=== PATIENT | male | born 1955 | race Caucasian/White ===

== ENCOUNTER 2017-01-11 15:30 | Inpatient (IN) | payer OTHER ==
[~2017-01-11] VITALS: Ht 175.3 cm; Wt 91.7 kg
[~2017-01-11 15:30] MED LIST: AMOX1TAB10 PO; CEPH-443 PO; CLOT30CR35 TOP; HYDR8TAB25 PO; LIDO5OI35 TP; METO100T13 PO; NYST60PO11 TOP; SULF1TAB31 PO; VENL150C PO
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
[2017-01-11] MEDS ORDERED: PIPER-TAZO 3.375 GM IV (PMX) 100 ML IVPB ONE (22:00)
[2017-01-11] MEDS ORDERED: VANCOMYCIN 1 GM (PMX) 250 ML IVPB SCH (22:00)
[2017-01-11] MEDS ORDERED: NACL 0.9% 3 ML SYG IV SCH (23:00)
[2017-01-11] MEDS ORDERED: ACETAMINOPHEN 325 MG TAB PO PRN ×2 (23:00)
[2017-01-11] MEDS ORDERED: ALBUTEROL/IPRATROPIUM (NEB) 3 ML AMP HHN PRN (23:00)
[2017-01-11] MEDS ORDERED: ONDANSETRON 4 MG INJ IV PRN ×2 (23:00)
[2017-01-11] MEDS ORDERED: hydrALAzine 20 MG INJ IV PRN (23:00)
[2017-01-11] MEDS ORDERED: NA PHOSPHATE/BIPHOS 133 ML ENEMA PR PRN (23:00)
[2017-01-11] MEDS ORDERED: NITROGLYCERIN (SL) 0.4 MG TAB SL PRN (23:00)
[2017-01-11] MEDS ORDERED: VANCOMYCIN IV PER PHARMACY XX SCH (23:00)
[2017-01-11] MEDS ORDERED: MAGNESIUM HYDROXIDE 30ML CUP PO PRN (23:00)
[2017-01-11] MEDS ORDERED: LORAZEPAM 2 MG INJ IV PRN (23:00)
[2017-01-11] MEDS ORDERED: DOCUSATE SODIUM 100 MG CAP PO PRN (23:00)
[2017-01-11 23:03] LABS: ADD SCAN DIFF NO
[2017-01-11 23:05] LABS: BASOPHILS % 0.3 % (0.0-2.0); EOSINOPHILS # 0.2 10^3/ul (0.0-0.5); EOSINOPHILS % 2.9 % (0.0-7.0); HEMATOCRIT 31.1 % (42.0-52.0); HEMOGLOBIN 9.9 g/dl (14.0-18.0); LYMPHOCYTES # 0.9 10^3/ul (0.8-2.9); LYMPHOCYTES % 11.3 % (15.0-51.0); MEAN CORPUSCULAR HEMOGLOBIN 26.8 pg (29.0-33.0); MEAN CORPUSCULAR HGB CONC 31.8 g/dl (32.0-37.0); MEAN CORPUSCULAR VOLUME 84.3 fl (82.0-101.0); MEAN PLATELET VOLUME 10.1 fl (7.4-10.4); MONOCYTES % 12.5 % (0.0-11.0); NEUTROPHIL # 5.5 10^3/ul (1.6-7.5); NEUTROPHILS % 72.5 % (39.0-77.0); PLATELET COUNT 250 10^3/UL (140-415); RED BLOOD COUNT 3.69 10^6/ul (4.70-6.10); RED CELL DISTRIBUTION WIDTH 17.1 % (11.5-14.5); WHITE BLOOD COUNT 7.6 10^3/ul (4.8-10.8)
[2017-01-11 23:14] LABS: ALBUMIN 3.8 g/dl (3.3-4.9)
[2017-01-11 23:15] LABS: POTASSIUM 4.1 mmol/L (3.5-5.1)
[2017-01-11 23:17] LABS: ALBUMIN/GLOBULIN RATIO 1.05; BILIRUBIN,INDIRECT 0.1 mg/dl (0-1.1); BILIRUBIN,TOTAL 0.1 mg/dl (0.2-1.3); CREATININE 0.68 mg/dl (0.61-1.24); TOTAL PROTEIN 7.4 g/dl (6.1-8.1)
[2017-01-11 23:18] LABS: CALCIUM 8.7 mg/dl (8.4-10.2)
[2017-01-12 00:26] VITALS: PULSE 72; TEMP 99.1
[2017-01-12] MEDS: morphine 2 MG INJ IV PRN ×3 (00:29→15:18)
[2017-01-12] MEDS ORDERED: HYDROmorphONE 1 MG/ML SYG IV STA (00:46)
[2017-01-12 01:29] VITALS: Ht 175.3 cm; Wt 91.7 kg
[2017-01-12] MEDS ORDERED: LOSA50TA6 PO (01:39)
[2017-01-12] MEDS ORDERED: METO200T4 PO (01:52)
[2017-01-12] MEDS: SOD CHLORIDE 0.9% 1,000 ML IV SCH ×3 (03:14→18:24)
[2017-01-12 03:19] VITALS: BP 145/71; RESP 16
[2017-01-12] MEDS: HYDROCODONE/APAP (5/325) TAB PO PRN (03:19)
[2017-01-12] MEDS: PIPER-TAZO 3.375 GM IV (PMX) 100 ML IVPB SCH ×2 (05:35→12:29)
[2017-01-12 05:42] LABS: INR 1.1; PROTIME 14.2 Sec (12.2-14.2); PT RATIO 1.1
[2017-01-12 05:43] LABS: PARTIAL THROMBOPLASTIN TIME 36.7 Sec (25.0-35.0)
[2017-01-12 05:55] LABS: CHOL/HDL RATIO 3.6 RATIO
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
[2017-01-12] MEDS ORDERED: PANTOPRAZOLE 40 MG INJ IV SCH (06:00)
[2017-01-12 06:21] LABS: THYROID STIMULATING HORMONE 5.36 MIU/L (0.465-4.680)
[2017-01-12 07:45] LABS: ADD SCAN DIFF NO
[2017-01-12 07:50] LABS: BASOPHILS % 0.3 % (0.0-2.0); EOSINOPHILS # 0.3 10^3/ul (0.0-0.5); EOSINOPHILS % 4.5 % (0.0-7.0); HEMATOCRIT 30.4 % (42.0-52.0); HEMOGLOBIN 9.5 g/dl (14.0-18.0); LYMPHOCYTES # 0.9 10^3/ul (0.8-2.9); LYMPHOCYTES % 12.3 % (15.0-51.0); MEAN CORPUSCULAR HEMOGLOBIN 26.5 pg (29.0-33.0); MEAN CORPUSCULAR HGB CONC 31.3 g/dl (32.0-37.0); MEAN CORPUSCULAR VOLUME 84.9 fl (82.0-101.0); MONOCYTE # 1.1 10^3/ul (0.3-0.9); MONOCYTES % 14.3 % (0.0-11.0); NEUTROPHILS % 68.2 % (39.0-77.0); PLATELET COUNT 257 10^3/UL (140-415); RED BLOOD COUNT 3.58 10^6/ul (4.70-6.10); RED CELL DISTRIBUTION WIDTH 17.2 % (11.5-14.5); WHITE BLOOD COUNT 7.4 10^3/ul (4.8-10.8)
[2017-01-12 08:02] VITALS: BP 118/67; RESP 20
[2017-01-12 08:31] LABS: POTASSIUM 4.2 mmol/L (3.5-5.1)
[2017-01-12 08:33] LABS: CREATININE 0.77 mg/dl (0.61-1.24)
[2017-01-12 08:34] LABS: CALCIUM 8.5 mg/dl (8.4-10.2); MAGNESIUM 2.1 mg/dl (1.7-2.5); PHOSPHORUS 3.8 mg/dl (2.5-4.9)
[2017-01-12] MEDS: VENLAFAXINE (XR) 75 MG CAP PO SCH (09:00)
[2017-01-12] MEDS: METOPROLOL (XL) 100 MG TAB PO SCH (09:02)
[2017-01-12] MEDS: HEPARIN 5,000 UNIT/0.5 ML SYG SC SCH ×2 (09:09→21:25)
[2017-01-12] MEDS: VANCOMYCIN 1.25 GM in SOD CHLORIDE 0.9% 250 ML IVPB SCH ×2 (09:34→21:18)
--- NOTE | 2017-01-12 15:38 | PN ---
DATE: 01/12/2017 SUBJECTIVE: The patient is alert, lying comfortably in bed; no fevers. Vital signs stable. WBC 7. 4, no shift, no bands. BUN 18, creatinine 0.77. ANTIMICROBIALS The patient is on: 1. Vancomycin. 2. Zosyn. PHYSICAL EXAMINATION GENERAL: A well-developed, fragile, elderly man who looks older than his age, who is in no distress . HEENT: Head atraumatic, normocephalic. Sclerae are anicteric. Buccal mucosa pink. NECK: Supple. CHEST: Rise symmetrical. Breath sounds clear. HEART: S1, S2. ABDOMEN: Soft, bowel tones present. EXTREMITIES: Left lower extremity erythema around the scabs on the upper thigh. ASSESSMENT 1. Left thigh cellulitis. 2. History of benign prostatic hypertrophy. 3. History of Lykcg-Qsrdnupns-Wkqew disease. 4. Hypertension. 5. Psychiatric problems. PLAN: The patient remains stable. We will continue him on vancomycin. Change the Zosyn to Levaqui n. Apply Silvadene cream to left upper thigh. Dictated By: LAN MENDOZA INVENTORY AUDITOR for RYAN JAIMES/DARWIN Conf#: [id number] DID#: [id number]
[2017-01-12] MEDS ORDERED: SILVER SULFADIAZINE 1% 400 GM CR TOP SCH (16:00)
[2017-01-12] MEDS: LEVOFLOXACIN 500 MG TAB PO SCH (16:05)
--- NOTE | 2017-01-12 17:02 | PN ---
Date/Time of Note Date/Time of Note DATE: 01/12/17 TIME: 17:00 Assessment/Plan VTE Prophylaxis VTE Prophylaxis Intervention: heparin Lines/Catheters IV Catheter Type (from Nrsg): Peripheral IV Assessment/Plan Assessment/Plan 1. Left thigh cellulitis. 2. History of benign prostatic hypertrophy. 3. History of Tmwni-Oiobyjqyv-Ewpyh disease. 4. Hypertension. 5. Psychiatric problems. Plan: IV abx zosyn and vancomycin ID following D/c zosyn and started on PO levaquin Heparin for DVT prophylaxis pt has psych issues, need SW consult Subjective 24 Hr Interval Summary Free Text/Dictation pt wants pain management but not using any pain meds so far Exam/Review of Systems Vital Signs Vitals Vital Signs Date Time Temp Pulse Resp B/P Pulse Ox O2 Delivery O2 Flow Rate FiO2 01/12/17 08:02 98.5 74 20 118/67 95 01/12/17 00:26 Room Air Intake and Output 01/11/17 01/11/17 01/12/17 15:00 23:00 07:00 Intake Total 440 ml Balance 440 ml Exam GENERAL: A well-developed, fragile, elderly man who looks older than his age, who is in no distress. HEENT: Head atraumatic, normocephalic. Sclerae are anicteric. Buccal mucosa pink. NECK: Supple. CHEST: Rise symmetrical. Breath sounds clear. HEART: S1, S2. ABDOMEN: Soft, bowel tones present. EXTREMITIES: Left lower extremity erythema around the scabs on the upper thigh. Results Result Diagram: 01/12/17 0455 01/12/17 0455 Results 24 hrs Laboratory Tests Test 01/11/17 23:00 01/12/17 04:55 Alanine Aminotransferase (ALT/SGPT) 49 Albumin 3.8 Albumin/Globulin Ratio 1.05 Alkaline Phosphatase 179 H Anion Gap 17 H 14 Aspartate Amino Transf (AST/SGOT) 32 Basophils # 0.0 0.0 Basophils % 0.3 0.3 Blood Urea Nitrogen 16 18 Calcium Level 8.7 8.5 Carbon Dioxide Level 25 28 Chloride Level 103 102 Creatinine 0.68 0.77 Direct Bilirubin 0.00 Eosinophils # 0.2 0.3 Eosinophils % 2.9 4.5 Globulin 3.60 H Glucose Level 110 85 Hematocrit 31.1 L 30.4 L Hemoglobin 9.9 L 9.5 L Indirect Bilirubin 0.1 Lymphocytes # 0.9 0.9 Lymphocytes % 11.3 L 12.3 L Mean Corpuscular Hemoglobin 26.8 L 26.5 L Mean Corpuscular Hemoglobin Concent 31.8 L 31.3 L Mean Corpuscular Volume 84.3 84.9 Mean Platelet Volume 10.1 11.0 H Monocytes # 1.0 H 1.1 H Monocytes % 12.5 H 14.3 H Neutrophils # 5.5 5.0 Neutrophils % 72.5 68.2 Nucleated Red Blood Cells # 0.0 0.0 Nucleated Red Blood Cells % 0.0 0.0 Platelet Count 250 257 Potassium Level 4.1 4.2 Red Blood Count 3.69 L 3.58 L Red Cell Distribution Width 17.1 H 17.2 H Sodium Level 141 140 Total Bilirubin 0.1 L Total Protein 7.4 White Blood Count 7.6 # 7.4 Activated Partial Thromboplast Time 36.7 H Cholesterol Level 181 Cholesterol/HDL Ratio 3.6 Free Thyroxine 1.21 HDL Cholesterol 49 Hemoglobin A1c 5.3 INR International Normalized Ratio 1.10 LDL Cholesterol, Calculated 96 Magnesium Level 2.1 Phosphorus Level 3.8 Prothrombin Time 14.2 Prothrombin Time Ratio 1.1 Thyroid Stimulating Hormone (TSH) 5.360 H Triglycerides Level 178 H Medications Medications Current Medications Ondansetron HCl (Zofran Inj) 4 mg Q6H PRN IV NAUSEA AND/OR VOMITING; Start at 23:00 Acetaminophen (Tylenol Tab) 650 mg Q6H PRN PO PAIN LEVEL 1-3 OR FEVER; Start at 23:00 Acetaminophen/ Hydrocodone Bitart ([place] (5/325)) 1 tab Q6H PRN PO MODERATE PAIN LEVEL 4-6 Last administered on 01/12/17 03:19; Admin Dose 1 TAB; Start at 23:00 Morphine Sulfate (morphine) 2 mg Q4H PRN IV SEVERE PAIN LEVEL 7-10 Last administered on 01/12/17 15:18; Admin Dose 2 MG; Start 01/11/17 at 23:00 Docusate Sodium (Colace) 100 mg Q12H PRN PO CONSTIPATION; Start 01/11/17 at 23: 00 Magnesium Hydroxide (Milk Of Mag) 30 ml DAILY PRN PO CONSTIPATION; Start at 23:00 Sodium Biphosphate/ Sodium Phosphate (Fleet Enema) 133 ml DAILY PRN [place] CONSTIPATION; Start 01/11/17 at 23:00 Heparin Sodium (Porcine) (Heparin (5000 Units/0.5 ml)) 5,000 unit Q12 SC Last administered on 01/12/17 09:09; Admin Dose 5,000 UNIT; Start 01/12/17 at 09:00 Lorazepam 0.5 mg 0.5 mg Q6H PRN IV ANXIETY; Start 01/11/17 at 23:00 Sodium Chloride (NS) 1,000 ml @ 100 mls/hr Q10H IV Last administered on 03:14; Admin Dose 100 MLS/HR; Start 01/11/17 at 22:41 Vancomycin HCl (Vanco Iv Per Pharmacy) VANCOMYCIN PER PHARMACY NOTE XX ; Start 01/11/17 at 23:00 Hydralazine HCl (Apresoline) 10 mg Q6H PRN IV ELEVATED BLOOD PRESSURE; Start at 23:00 Clonidine (Catapres) 0.1 mg Q6H PRN PO ELEVATED SYSTOLIC BP; Start 01/11/17 at 23:00 Nitroglycerin (Nitroglycerin (Sl Tab) 0.4 Mg) 1 tab Q5M PRN SL ANGINA; Start at 23:00 Metoprolol Succinate (Toprol Xl) 100 mg DAILY PO Last administered on 09:02; Admin Dose 100 MG; Start 01/12/17 at 09:00 Venlafaxine HCl 300 mg 300 mg DAILY PO Last administered on 01/12/17 09:00; Admin Dose 300 MG; Start 01/12/17 at 09:00 Vancomycin HCl/ Sodium Chloride (Vancocin/NS) 250 ml @ 83.333 mls/ hr Q12H IVPB Last administered on 01/12/17 09:34; Admin Dose 83.333 MLS/HR; Start at 09:00 Influenza Virus Vaccine (Fluzone) 0.5 ml ONCE ONCE IM* ; Start 01/14/17 at 09:00 ; Stop 01/14/17 at 09:01 Levofloxacin (Levaquin) 500 mg DAILY@06 PO Last administered on 01/12/17 16:05 ; Admin Dose 500 MG; Start 01/12/17 at 15:30 Silver Sulfadiazine (Thermazene 1% 50 Gm) 1 applic BID TOP ; Start 01/12/17 at 16:00 Pantoprazole (Protonix Tab) 40 mg DAILY@06 PO ; Start 01/13/17 at 06:00 SWATHI ALVARADO MD Jan 12, 2017 17:02
[2017-01-12] MEDS: SILVER SULFADIAZINE 1% 50 GM CR TOP SCH (18:16)
[2017-01-12 19:35] VITALS: BP 150/79; RESP 16
[2017-01-13] MEDS: SILVER SULFADIAZINE 1% 50 GM CR TOP SCH ×3 (00:12→21:04)
[2017-01-13] MEDS: HYDROmorphONE 1 MG/ML SYG IV PRN ×5 (04:10→20:58)
[2017-01-13] MEDS: LEVOFLOXACIN 500 MG TAB PO SCH (06:00)
[2017-01-13] MEDS: PANTOPRAZOLE (EC) 40 MG TAB PO SCH (06:00)
[2017-01-13 08:27] VITALS: BP 146/79; RESP 18
[2017-01-13] MEDS: VANCOMYCIN 1.25 GM in SOD CHLORIDE 0.9% 250 ML IVPB SCH ×2 (08:36→22:24)
[2017-01-13] MEDS: VENLAFAXINE (XR) 75 MG CAP PO SCH (08:37)
[2017-01-13] MEDS: METOPROLOL (XL) 100 MG TAB PO SCH (08:41)
[2017-01-13 08:44] LABS: ADD UMIC NO; URINE BILIRUBIN (Dip) NEGATIVE (NEGATIVE); URINE BLOOD (Dip) NEGATIVE (NEGATIVE); URINE COLOR LT. YELLOW (YELLOW); URINE GLUCOSE (Dip) NEGATIVE (NEGATIVE); URINE KETONES (Dip) NEGATIVE (NEGATIVE); URINE LEUKOCYTE ESTERASE (Dip) NEGATIVE (NEGATIVE); URINE NITRITE (Dip) NEGATIVE (NEGATIVE); URINE TOTAL PROTEIN (Dip) NEGATIVE (NEGATIVE); URINE UROBILINOGEN (Dip) 0.2 E.U./dL (0.1-1.0)
[2017-01-13] MEDS: HEPARIN 5,000 UNIT/0.5 ML SYG SC SCH ×2 (08:48→21:14)
[2017-01-13 08:50] LABS: ADD SCAN DIFF NO
[2017-01-13 09:08] LABS: BASOPHILS % 0.3 % (0.0-2.0); EOSINOPHILS # 0.3 10^3/ul (0.0-0.5); EOSINOPHILS % 4.4 % (0.0-7.0); HEMATOCRIT 32.8 % (42.0-52.0); HEMOGLOBIN 10.7 g/dl (14.0-18.0); LYMPHOCYTES # 1.1 10^3/ul (0.8-2.9); LYMPHOCYTES % 16.8 % (15.0-51.0); MEAN CORPUSCULAR HEMOGLOBIN 26.8 pg (29.0-33.0); MEAN CORPUSCULAR HGB CONC 32.6 g/dl (32.0-37.0); MEAN CORPUSCULAR VOLUME 82.2 fl (82.0-101.0); MEAN PLATELET VOLUME 10.9 fl (7.4-10.4); MONOCYTE # 0.7 10^3/ul (0.3-0.9); MONOCYTES % 10.6 % (0.0-11.0); NEUTROPHIL # 4.3 10^3/ul (1.6-7.5); NEUTROPHILS % 67.6 % (39.0-77.0); PLATELET COUNT 272 10^3/UL (140-415); RED BLOOD COUNT 3.99 10^6/ul (4.70-6.10); RED CELL DISTRIBUTION WIDTH 16.3 % (11.5-14.5); WHITE BLOOD COUNT 6.3 10^3/ul (4.8-10.8)
[2017-01-13 09:11] LABS: CALCIUM 8.7 mg/dl (8.4-10.2); CREATININE 0.68 mg/dl (0.61-1.24)
--- NOTE | 2017-01-13 11:05 | PN ---
Date/Time of Note Date/Time of Note DATE: 01/13/17 TIME: 10:57 Assessment/Plan VTE Prophylaxis VTE Prophylaxis Intervention: heparin Lines/Catheters IV Catheter Type (from Nrsg): Peripheral IV Urinary Cath still in place: No Assessment/Plan Assessment/Plan 1. Left thigh cellulitis. 2. Intractable left thigh pain 2. History of benign prostatic hypertrophy. 3. History of Walpf-Shwxcytlg-Qpjxq disease. 4. Hypertension. 5. Psychiatric problems. 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 HEENT: Head atraumatic, normocephalic. Sclerae are anicteric. Buccal mucosa pink. NECK: Supple. CHEST: Rise symmetrical. Breath sounds clear. HEART: S1, S2. ABDOMEN: Soft, bowel tones present. EXTREMITIES: Left lower extremity erythema around the scabs on the upper thigh. Results Result Diagram: 01/13/17 0802 01/13/17 0802 Results 24 hrs Laboratory Tests Test 01/13/17 04:40 01/13/17 08:02 Urine Bilirubin NEGATIVE Urine Clarity CLEAR Urine Color LT. YELLOW Urine Glucose NEGATIVE Urine Hemoglobin NEGATIVE Urine Ketones NEGATIVE Urine Leukocyte Esterase NEGATIVE Urine Nitrite NEGATIVE Urine Specific [place] 1.015 Urine Total Protein NEGATIVE Urine Urobilinogen 0.2 E.U./dL Urine pH 6.0 Anion Gap 14 Basophils # 0.0 Basophils % 0.3 Blood Urea Nitrogen 12 Calcium Level 8.7 Carbon Dioxide Level 26 Chloride Level 104 Creatinine 0.68 Eosinophils # 0.3 Eosinophils % 4.4 Glucose Level 84 Hematocrit 32.8 L Hemoglobin 10.7 L Lymphocytes # 1.1 Lymphocytes % 16.8 Mean Corpuscular Hemoglobin 26.8 L Mean Corpuscular Hemoglobin Concent 32.6 Mean Corpuscular Volume 82.2 Mean Platelet Volume 10.9 H Monocytes # 0.7 Monocytes % 10.6 Neutrophils # 4.3 Neutrophils % 67.6 Nucleated Red Blood Cells # 0.0 Nucleated Red Blood Cells % 0.0 Platelet Count 272 Potassium Level 4.0 Red Blood Count 3.99 L Red Cell Distribution Width 16.3 H Sodium Level 140 White Blood Count 6.3 Medications Medications Current Medications Ondansetron HCl (Zofran Inj) 4 mg Q6H PRN IV NAUSEA AND/OR VOMITING; Start at 23:00 Acetaminophen (Tylenol Tab) 650 mg Q6H PRN PO PAIN LEVEL 1-3 OR FEVER; Start at 23:00 Acetaminophen/ Hydrocodone Bitart ([place] (5/325)) 1 tab Q6H PRN PO MODERATE PAIN LEVEL 4-6 Last administered on 01/12/17 03:19; Admin Dose 1 TAB; Start at 23:00 Docusate Sodium (Colace) 100 mg Q12H PRN PO CONSTIPATION; Start 01/11/17 at 23: 00 Magnesium Hydroxide (Milk Of Mag) 30 ml DAILY PRN PO CONSTIPATION; Start at 23:00 Sodium Biphosphate/ Sodium Phosphate (Fleet Enema) 133 ml DAILY PRN [place] CONSTIPATION; Start 01/11/17 at 23:00 Heparin Sodium (Porcine) (Heparin (5000 Units/0.5 ml)) 5,000 unit Q12 SC Last administered on 01/13/17 08:48; Admin Dose 5,000 UNIT; Start 01/12/17 at 09:00 Lorazepam 0.5 mg 0.5 mg Q6H PRN IV ANXIETY; Start 01/11/17 at 23:00 Sodium Chloride (NS) 1,000 ml @ 70 mls/hr [id number] IV Last administered on 01/12 18:24; Admin Dose 70 MLS/HR; Start 01/11/17 at 22:41 Vancomycin HCl (Vanco Iv Per Pharmacy) VANCOMYCIN PER PHARMACY NOTE XX ; Start 01/11/17 at 23:00 Hydralazine HCl (Apresoline) 10 mg Q6H PRN IV ELEVATED BLOOD PRESSURE; Start at 23:00 Clonidine (Catapres) 0.1 mg Q6H PRN PO ELEVATED SYSTOLIC BP; Start 01/11/17 at 23:00 Nitroglycerin (Nitroglycerin (Sl Tab) 0.4 Mg) 1 tab Q5M PRN SL ANGINA; Start at 23:00 Metoprolol Succinate (Toprol Xl) 100 mg DAILY PO Last administered on 08:41; Admin Dose 100 MG; Start 01/12/17 at 09:00 Venlafaxine HCl 300 mg 300 mg DAILY PO Last administered on 01/13/17 08:37; Admin Dose 300 MG; Start 01/12/17 at 09:00 Vancomycin HCl/ Sodium Chloride (Vancocin/NS) 250 ml @ 83.333 mls/ hr Q12H IVPB Last administered on 01/13/17 08:36; Admin Dose 83.333 MLS/HR; Start at 09:00 Influenza Virus Vaccine (Fluzone) 0.5 ml ONCE ONCE IM* ; Start 01/14/17 at 09:00 ; Stop 01/14/17 at 09:01 Levofloxacin (Levaquin) 500 mg DAILY@06 PO Last administered on 01/13/17 06:00 ; Admin Dose 500 MG; Start 01/12/17 at 15:30 Silver Sulfadiazine (Thermazene 1% 50 Gm) 1 applic BID TOP Last administered on 01/13/17 08:42; Admin Dose 1 APPLIC; Start 01/12/17 at 16:00 Pantoprazole (Protonix Tab) 40 mg DAILY@06 PO Last administered on 01/13/17 06 :00; Admin Dose 40 MG; Start 01/13/17 at 06:00 Hydromorphone HCl (Dilaudid) 0.5 mg Q4H PRN IV PAIN Last administered on 08:36; Admin Dose 0.5 MG; Start 01/12/17 at 23:00 Losartan Potassium (Cozaar) 50 mg DAILY PO ; Start 01/13/17 at 11:00; Status UNV Tamsulosin HCl (Flomax) 0.4 mg HS PO ; Start 01/13/17 at 21:00; Status UNV SWATHI ALVARADO MD Jan 13, 2017 11:05
[2017-01-13] MEDS: LOSARTAN 50 MG TAB PO SCH (12:57)
--- NOTE | 2017-01-13 16:21 | CONS ---
Date/Time of Note Date/Time of Note DATE: 01/13/17 TIME: 16:20 Assessment/Plan Assessment/Plan Chief Complaint/Hosp Course SUBJECTIVE: The patient is alert, lying comfortably in bed, no fevers. ANTIMICROBIALS 1. Vancomycin. 2. Levaquin PHYSICAL EXAMINATION GENERAL: A well-developed, fragile, elderly man who looks older than his age, who is in no distress. HEENT: Head atraumatic, normocephalic. Sclerae are anicteric. Buccal mucosa pink. NECK: Supple. CHEST: Rise symmetrical. Breath sounds clear. HEART: S1, S2. ABDOMEN: Soft, bowel tones present. EXTREMITIES: Left lower extremity erythema around the scabs on the upper thigh. ASSESSMENT 1. Left thigh cellulitis. 2. History of benign prostatic hypertrophy. 3. History of Zzxqb-Luqjpyczo-Ginro disease. 4. Hypertension. 5. Psychiatric problems. PLAN: The patient remains stable. Continue abx, Silvadene cream to left upper thigh. DW staff Problems: Consultation Date/Type/Reason Admit Date/Time Jan 11, 2017 at 22:42 Initial Consult Date Type of Consultation: ID Exam/Review of Systems Vital Signs Vitals Vital Signs Date Time Temp Pulse Resp B/P Pulse Ox O2 Delivery O2 Flow Rate FiO2 01/13/17 08:27 98.7 85 18 146/79 98 01/12/17 00:26 Room Air Intake and Output 01/12/17 01/12/17 01/13/17 15:00 23:00 07:00 Intake Total 350 ml 1620 ml 1050 ml Output Total 700 ml 1200 ml Balance 350 ml 920 ml -150 ml Results Result Diagram: 01/13/17 0802 01/13/17 0802 Results 24 hrs Laboratory Tests Test 01/13/17 04:40 01/13/17 08:02 Urine Bilirubin NEGATIVE Urine Clarity CLEAR Urine Color LT. YELLOW Urine Glucose NEGATIVE Urine Hemoglobin NEGATIVE Urine Ketones NEGATIVE Urine Leukocyte Esterase NEGATIVE Urine Nitrite NEGATIVE Urine Specific [place] 1.015 Urine Total Protein NEGATIVE Urine Urobilinogen 0.2 E.U./dL Urine pH 6.0 Anion Gap 14 Basophils # 0.0 Basophils % 0.3 Blood Urea Nitrogen 12 Calcium Level 8.7 Carbon Dioxide Level 26 Chloride Level 104 Creatinine 0.68 Eosinophils # 0.3 Eosinophils % 4.4 Glucose Level 84 Hematocrit 32.8 L Hemoglobin 10.7 L Lymphocytes # 1.1 Lymphocytes % 16.8 Mean Corpuscular Hemoglobin 26.8 L Mean Corpuscular Hemoglobin Concent 32.6 Mean Corpuscular Volume 82.2 Mean Platelet Volume 10.9 H Monocytes # 0.7 Monocytes % 10.6 Neutrophils # 4.3 Neutrophils % 67.6 Nucleated Red Blood Cells # 0.0 Nucleated Red Blood Cells % 0.0 Platelet Count 272 Potassium Level 4.0 Red Blood Count 3.99 L Red Cell Distribution Width 16.3 H Sodium Level 140 White Blood Count 6.3 Medications Medications Current Medications Ondansetron HCl (Zofran Inj) 4 mg Q6H PRN IV NAUSEA AND/OR VOMITING; Start at 23:00 Acetaminophen (Tylenol Tab) 650 mg Q6H PRN PO PAIN LEVEL 1-3 OR FEVER; Start at 23:00 Acetaminophen/ Hydrocodone Bitart ([place] (5/325)) 1 tab Q6H PRN PO MODERATE PAIN LEVEL 4-6 Last administered on 01/12/17 03:19; Admin Dose 1 TAB; Start at 23:00 Docusate Sodium (Colace) 100 mg Q12H PRN PO CONSTIPATION; Start 01/11/17 at 23: 00 Magnesium Hydroxide (Milk Of Mag) 30 ml DAILY PRN PO CONSTIPATION; Start at 23:00 Sodium Biphosphate/ Sodium Phosphate (Fleet Enema) 133 ml DAILY PRN [place] CONSTIPATION; Start 01/11/17 at 23:00 Heparin Sodium (Porcine) (Heparin (5000 Units/0.5 ml)) 5,000 unit Q12 SC Last administered on 01/13/17 08:48; Admin Dose 5,000 UNIT; Start 01/12/17 at 09:00 Lorazepam (Ativan) 0.5 mg Q6H PRN IV ANXIETY; Start 01/11/17 at 23:00 Vancomycin HCl (Vanco Iv Per Pharmacy) VANCOMYCIN PER PHARMACY NOTE XX ; Start 01/11/17 at 23:00 Hydralazine HCl (Apresoline) 10 mg Q6H PRN IV ELEVATED BLOOD PRESSURE; Start at 23:00 Clonidine (Catapres) 0.1 mg Q6H PRN PO ELEVATED SYSTOLIC BP; Start 01/11/17 at 23:00 Nitroglycerin (Nitroglycerin (Sl Tab) 0.4 Mg) 1 tab Q5M PRN SL ANGINA; Start at 23:00 Metoprolol Succinate (Toprol Xl) 100 mg DAILY PO Last administered on 08:41; Admin Dose 100 MG; Start 01/12/17 at 09:00 Venlafaxine HCl 300 mg 300 mg DAILY PO Last administered on 01/13/17 08:37; Admin Dose 300 MG; Start 01/12/17 at 09:00 Vancomycin HCl/ Sodium Chloride (Vancocin/NS) 250 ml @ 83.333 mls/ hr Q12H IVPB Last administered on 01/13/17 08:36; Admin Dose 83.333 MLS/HR; Start at 09:00 Influenza Virus Vaccine (Fluzone) 0.5 ml ONCE ONCE IM* ; Start 01/14/17 at 09:00 ; Stop 01/14/17 at 09:01 Levofloxacin (Levaquin) 500 mg DAILY@06 PO Last administered on 01/13/17 06:00 ; Admin Dose 500 MG; Start 01/12/17 at 15:30 Silver Sulfadiazine (Thermazene 1% 50 Gm) 1 applic BID TOP Last administered on 01/13/17 08:42; Admin Dose 1 APPLIC; Start 01/12/17 at 16:00 Pantoprazole (Protonix Tab) 40 mg DAILY@06 PO Last administered on 01/13/17 06 :00; Admin Dose 40 MG; Start 01/13/17 at 06:00 Hydromorphone HCl (Dilaudid) 0.5 mg Q4H PRN IV PAIN Last administered on 12:57; Admin Dose 0.5 MG; Start 01/12/17 at 23:00 Losartan Potassium (Cozaar) 50 mg DAILY PO Last administered on 01/13/17 12:57 ; Admin Dose 50 MG; Start 01/13/17 at 11:00 Tamsulosin HCl (Flomax) 0.4 mg HS PO ; Start 01/13/17 at 21:00 Miscellaneous Information (*Rx Drug Level Order Reminder*) VANCOMYCIN TROUGH 1999 ONCE ONCE XX ; Start 01/13/17 at 20:00; Stop 01/13/17 at 20:01 LAN MENDOZA LIFE SKILLS EDUCATOR Jan 13, 2017 16:21
[2017-01-13 19:56] VITALS: BP 134/78; RESP 20
[2017-01-13] MEDS: TAMSULOSIN (SR) 0.4 MG CAP PO SCH (21:04)
[2017-01-14] MEDS: HYDROmorphONE 1 MG/ML SYG IV PRN ×6 (01:06→21:28)
[2017-01-14] MEDS: VANCOMYCIN 1.5 GM in SOD CHLORIDE 0.9% 250 ML IVPB SCH ×2 (05:14→17:39)
[2017-01-14] MEDS: LEVOFLOXACIN 500 MG TAB PO SCH (05:16)
[2017-01-14] MEDS: PANTOPRAZOLE (EC) 40 MG TAB PO SCH (05:16)
[2017-01-14 08:13] VITALS: BP 139/77; RESP 18
[2017-01-14] MEDS ORDERED: INFLUENZA VIRUS VACCINE 0.5 ML (DISPENSING) IM* ONE (09:00)
[2017-01-14] MEDS: VENLAFAXINE (XR) 75 MG CAP PO SCH (09:17)
[2017-01-14] MEDS: LOSARTAN 50 MG TAB PO SCH (09:17)
[2017-01-14] MEDS: METOPROLOL (XL) 100 MG TAB PO SCH (09:18)
[2017-01-14] MEDS: SILVER SULFADIAZINE 1% 50 GM CR TOP SCH ×2 (09:18→21:00)
[2017-01-14] MEDS: HEPARIN 5,000 UNIT/0.5 ML SYG SC SCH ×2 (09:27→21:05)
--- NOTE | 2017-01-14 14:43 | CONS ---
Date/Time of Note Date/Time of Note DATE: 01/14/17 TIME: 14:42 Assessment/Plan Assessment/Plan Chief Complaint/Hosp Course SUBJECTIVE: The patient is alert, lying comfortably in bed, no fevers. ANTIMICROBIALS 1. Vancomycin. 2. Levaquin PHYSICAL EXAMINATION GENERAL: A well-developed, fragile, elderly man who looks older than his age, who is in no distress. HEENT: Head atraumatic, normocephalic. Sclerae are anicteric. Buccal mucosa pink. NECK: Supple. CHEST: Rise symmetrical. Breath sounds clear. HEART: S1, S2. ABDOMEN: Soft, bowel tones present. EXTREMITIES: Left lower extremity erythema around the scabs on the upper thigh. ASSESSMENT 1. Left thigh cellulitis. 2. History of benign prostatic hypertrophy. 3. History of Rycqk-Brxokuaon-Azkjt disease. 4. Hypertension. 5. Psychiatric problems. PLAN: The patient remains stable. Continue abx, Silvadene cream to left upper thigh, anticipate dc on PO Bactrim. DW staff Problems: Consultation Date/Type/Reason Admit Date/Time Jan 11, 2017 at 22:42 Type of Consultation: ID Exam/Review of Systems Vital Signs Vitals Vital Signs Date Time Temp Pulse Resp B/P Pulse Ox O2 Delivery O2 Flow Rate FiO2 01/14/17 08:13 98.3 77 18 139/77 01/13/17 19:56 97 01/12/17 00:26 Room Air Intake and Output 01/13/17 01/13/17 01/14/17 15:00 23:00 07:00 Intake Total 1310 ml 740 ml 750 ml Output Total 600 ml 1200 ml Balance 1310 ml 140 ml -450 ml Results Result Diagram: 01/13/17 0802 01/13/17 0802 Results 24 hrs Laboratory Tests Test 01/13/17 20:43 Vancomycin Level Trough 10.7 Medications Medications Current Medications Ondansetron HCl (Zofran Inj) 4 mg Q6H PRN IV NAUSEA AND/OR VOMITING; Start at 23:00 Acetaminophen (Tylenol Tab) 650 mg Q6H PRN PO PAIN LEVEL 1-3 OR FEVER; Start at 23:00 Acetaminophen/ Hydrocodone Bitart ([place] (5/325)) 1 tab Q6H PRN PO MODERATE PAIN LEVEL 4-6 Last administered on 01/12/17 03:19; Admin Dose 1 TAB; Start at 23:00 Docusate Sodium (Colace) 100 mg Q12H PRN PO CONSTIPATION; Start 01/11/17 at 23: 00 Magnesium Hydroxide (Milk Of Mag) 30 ml DAILY PRN PO CONSTIPATION; Start at 23:00 Sodium Biphosphate/ Sodium Phosphate (Fleet Enema) 133 ml DAILY PRN [place] CONSTIPATION; Start 01/11/17 at 23:00 Heparin Sodium (Porcine) (Heparin (5000 Units/0.5 ml)) 5,000 unit Q12 SC Last administered on 01/14/17 09:27; Admin Dose 5,000 UNIT; Start 01/12/17 at 09:00 Lorazepam (Ativan) 0.5 mg Q6H PRN IV ANXIETY; Start 01/11/17 at 23:00 Vancomycin HCl (Vanco Iv Per Pharmacy) VANCOMYCIN PER PHARMACY NOTE XX ; Start 01/11/17 at 23:00 Hydralazine HCl (Apresoline) 10 mg Q6H PRN IV ELEVATED BLOOD PRESSURE; Start at 23:00 Clonidine (Catapres) 0.1 mg Q6H PRN PO ELEVATED SYSTOLIC BP; Start 01/11/17 at 23:00 Nitroglycerin (Nitroglycerin (Sl Tab) 0.4 Mg) 1 tab Q5M PRN SL ANGINA; Start at 23:00 Metoprolol Succinate (Toprol Xl) 100 mg DAILY PO Last administered on 09:18; Admin Dose 100 MG; Start 01/12/17 at 09:00 Venlafaxine HCl (Effexor Xr) 300 mg DAILY PO Last administered on 01/14/17 09: 17; Admin Dose 300 MG; Start 01/12/17 at 09:00 Levofloxacin (Levaquin) 500 mg DAILY@06 PO Last administered on 01/14/17 05:16 ; Admin Dose 500 MG; Start 01/12/17 at 15:30 Silver Sulfadiazine (Thermazene 1% 50 Gm) 1 applic BID TOP Last administered on 01/14/17 09:18; Admin Dose 1 APPLIC; Start 01/12/17 at 16:00 Pantoprazole (Protonix Tab) 40 mg DAILY@06 PO Last administered on 01/14/17 05 :16; Admin Dose 40 MG; Start 01/13/17 at 06:00 Hydromorphone HCl (Dilaudid) 0.5 mg Q4H PRN IV PAIN Last administered on 13:17; Admin Dose 0.5 MG; Start 01/12/17 at 23:00 Losartan Potassium (Cozaar) 50 mg DAILY PO Last administered on 01/14/17 09:17 ; Admin Dose 50 MG; Start 01/13/17 at 11:00 Tamsulosin HCl 0.4 mg 0.4 mg HS PO Last administered on 01/13/17 21:04; Admin Dose 0.4 MG; Start 01/13/17 at 21:00 Vancomycin HCl/ Sodium Chloride (Vancocin/NS) 250 ml @ 83.333 mls/ hr Q12H IVPB Last administered on 01/14/17 05:14; Admin Dose 83.333 MLS/HR; Start at 06:00 Miscellaneous Information (*Rx Drug Level Order Reminder*) VANCOMYCIN TROUGH AT 1700 ONCE ONCE XX ; Start 01/15/17 at 17:00; Stop 01/15/17 at 17:01 LAN MENDOZA NP Jan 14, 2017 14:43
[2017-01-14 20:00] VITALS: BP 140/84; RESP 20
[2017-01-14] MEDS: TAMSULOSIN (SR) 0.4 MG CAP PO SCH (20:58)
--- NOTE | 2017-01-14 20:58 | PN ---
Date/Time of Note Date/Time of Note DATE: 01/14/17 TIME: 20:56 Assessment/Plan VTE Prophylaxis VTE Prophylaxis Intervention: heparin Lines/Catheters IV Catheter Type (from Nrsg): Saline Lock Urinary Cath still in place: No Assessment/Plan Assessment/Plan 1. Left thigh cellulitis. 2. Intractable left thigh pain 2. History of benign prostatic hypertrophy. 3. History of Rxtlg-Aciatswkw-Qfplc disease. 4. Hypertension. 5. Psychiatric problems. 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 Subjective 24 Hr Interval Summary Free Text/Dictation pt has been asking IV dilaudid, BP stable , Wants to have PICC line Exam/Review of Systems Vital Signs Vitals Vital Signs Date Time Temp Pulse Resp B/P Pulse Ox O2 Delivery O2 Flow Rate FiO2 01/14/17 20:00 98.1 74 20 140/84 97 01/12/17 00:26 Room Air Intake and Output 01/13/17 01/13/17 01/14/17 15:00 23:00 07:00 Intake Total 1310 ml 740 ml 750 ml Output Total 600 ml 1200 ml Balance 1310 ml 140 ml -450 ml Results Result Diagram: 01/13/17 0802 01/13/17 0802 Medications Medications Current Medications Ondansetron HCl (Zofran Inj) 4 mg Q6H PRN IV NAUSEA AND/OR VOMITING; Start at 23:00 Acetaminophen (Tylenol Tab) 650 mg Q6H PRN PO PAIN LEVEL 1-3 OR FEVER; Start at 23:00 Acetaminophen/ Hydrocodone Bitart ([place] (5/325)) 1 tab Q6H PRN PO MODERATE PAIN LEVEL 4-6 Last administered on 01/12/17t 03:19; Admin Dose 1 TAB; Start at 23:00 Docusate Sodium (Colace) 100 mg Q12H PRN PO CONSTIPATION; Start 01/11/17 at 23: 00 Magnesium Hydroxide (Milk Of Mag) 30 ml DAILY PRN PO CONSTIPATION; Start at 23:00 Sodium Biphosphate/ Sodium Phosphate (Fleet Enema) 133 ml DAILY PRN [place] CONSTIPATION; Start 01/11/17 at 23:00 Heparin Sodium (Porcine) (Heparin (5000 Units/0.5 ml)) 5,000 unit Q12 SC Last administered on 01/14/17 09:27; Admin Dose 5,000 UNIT; Start 01/12/17 at 09:00 Lorazepam (Ativan) 0.5 mg Q6H PRN IV ANXIETY; Start 01/11/17 at 23:00 Vancomycin HCl (Vanco Iv Per Pharmacy) VANCOMYCIN PER PHARMACY NOTE XX ; Start 01/11/17 at 23:00 Hydralazine HCl (Apresoline) 10 mg Q6H PRN IV ELEVATED BLOOD PRESSURE; Start at 23:00 Clonidine (Catapres) 0.1 mg Q6H PRN PO ELEVATED SYSTOLIC BP; Start 01/11/17 at 23:00 Nitroglycerin (Nitroglycerin (Sl Tab) 0.4 Mg) 1 tab Q5M PRN SL ANGINA; Start at 23:00 Metoprolol Succinate (Toprol Xl) 100 mg DAILY PO Last administered on 09:18; Admin Dose 100 MG; Start 01/12/17 at 09:00 Venlafaxine HCl (Effexor Xr) 300 mg DAILY PO Last administered on 01/14/17 09: 17; Admin Dose 300 MG; Start 01/12/17 at 09:00 Levofloxacin (Levaquin) 500 mg DAILY@06 PO Last administered on 01/14/17 05:16 ; Admin Dose 500 MG; Start 01/12/17 at 15:30 Silver Sulfadiazine (Thermazene 1% 50 Gm) 1 applic BID TOP Last administered on 01/14/17 09:18; Admin Dose 1 APPLIC; Start 01/12/17 at 16:00 Pantoprazole (Protonix Tab) 40 mg DAILY@06 PO Last administered on 01/14/17 05 :16; Admin Dose 40 MG; Start 01/13/17 at 06:00 Hydromorphone HCl (Dilaudid) 0.5 mg Q4H PRN IV PAIN Last administered on 17:39; Admin Dose 0.5 MG; Start 01/12/17 at 23:00 Losartan Potassium (Cozaar) 50 mg DAILY PO Last administered on 01/14/17 09:17 ; Admin Dose 50 MG; Start 01/13/17 at 11:00 Tamsulosin HCl 0.4 mg 0.4 mg HS PO Last administered on 01/13/17 21:04; Admin Dose 0.4 MG; Start 01/13/17 at 21:00 Vancomycin HCl/ Sodium Chloride (Vancocin/NS) 250 ml @ 83.333 mls/ hr Q12H IVPB Last administered on 01/14/17 17:39; Admin Dose 83.333 MLS/HR; Start at 06:00 Miscellaneous Information (*Rx Drug Level Order Reminder*) VANCOMYCIN TROUGH AT 1700 ONCE ONCE XX ; Start 01/15/17 at 17:00; Stop 01/15/17 at 17:01 SWATHI ALVARADO MD Jan 14, 2017 20:57
[2017-01-15] MEDS: HYDROmorphONE 1 MG/ML SYG IV PRN ×5 (01:26→19:40)
[2017-01-15] MEDS: SILVER SULFADIAZINE 1% 50 GM CR TOP SCH ×3 (01:26→20:26)
[2017-01-15] MEDS: HYDROCODONE/APAP (5/325) TAB PO PRN (02:38)
[2017-01-15] MEDS: LEVOFLOXACIN 500 MG TAB PO SCH (05:27)
[2017-01-15] MEDS: PANTOPRAZOLE (EC) 40 MG TAB PO SCH (05:27)
[2017-01-15] MEDS: VANCOMYCIN 1.5 GM in SOD CHLORIDE 0.9% 250 ML IVPB SCH ×3 (05:35→20:13)
[2017-01-15 06:06] LABS: ADD SCAN DIFF NO
[2017-01-15 06:13] LABS: BASOPHILS % 0.5 % (0.0-2.0); EOSINOPHILS # 0.3 10^3/ul (0.0-0.5); EOSINOPHILS % 7.2 % (0.0-7.0); HEMATOCRIT 30.8 % (42.0-52.0); HEMOGLOBIN 9.8 g/dl (14.0-18.0); LYMPHOCYTES % 21.4 % (15.0-51.0); MEAN CORPUSCULAR HEMOGLOBIN 25.9 pg (29.0-33.0); MEAN CORPUSCULAR HGB CONC 31.8 g/dl (32.0-37.0); MEAN CORPUSCULAR VOLUME 81.3 fl (82.0-101.0); MEAN PLATELET VOLUME 10.2 fl (7.4-10.4); MONOCYTE # 0.6 10^3/ul (0.3-0.9); MONOCYTES % 12.6 % (0.0-11.0); NEUTROPHIL # 2.6 10^3/ul (1.6-7.5); NEUTROPHILS % 57.8 % (39.0-77.0); PLATELET COUNT 295 10^3/UL (140-415); RED BLOOD COUNT 3.79 10^6/ul (4.70-6.10); RED CELL DISTRIBUTION WIDTH 15.9 % (11.5-14.5); WHITE BLOOD COUNT 4.4 10^3/ul (4.8-10.8)
[2017-01-15 06:26] LABS: INR 0.95; PROTIME 12.7 Sec (12.2-14.2)
[2017-01-15 06:27] LABS: PARTIAL THROMBOPLASTIN TIME 29.7 Sec (25.0-35.0); POTASSIUM 3.9 mmol/L (3.5-5.1)
[2017-01-15 06:30] LABS: CREATININE 0.76 mg/dl (0.61-1.24)
[2017-01-15 06:31] LABS: CALCIUM 8.8 mg/dl (8.4-10.2)
[2017-01-15 07:33] VITALS: BP 157/88; RESP 18
[2017-01-15] MEDS: LOSARTAN 50 MG TAB PO SCH (09:22)
[2017-01-15] MEDS: METOPROLOL (XL) 100 MG TAB PO SCH (09:22)
[2017-01-15] MEDS: VENLAFAXINE (XR) 75 MG CAP PO SCH (09:22)
[2017-01-15] MEDS: HEPARIN 5,000 UNIT/0.5 ML SYG SC SCH ×2 (09:26→20:26)
--- NOTE | 2017-01-15 13:43 | CONS ---
Date/Time of Note Date/Time of Note DATE: 01/15/17 TIME: 13:43 Assessment/Plan Assessment/Plan Chief Complaint/Hosp Course SUBJECTIVE: The patient is alert, lying comfortably in bed, no fevers. ANTIMICROBIALS 1. Vancomycin. 2. Levaquin PHYSICAL EXAMINATION GENERAL: A well-developed, fragile, elderly man who looks older than his age, who is in no distress. HEENT: Head atraumatic, normocephalic. Sclerae are anicteric. Buccal mucosa pink. NECK: Supple. CHEST: Rise symmetrical. Breath sounds clear. HEART: S1, S2. ABDOMEN: Soft, bowel tones present. EXTREMITIES: Left lower extremity erythema around the scabs on the upper thigh. ASSESSMENT 1. Left thigh cellulitis. 2. History of benign prostatic hypertrophy. 3. History of Xyinc-Bbsnfvpbk-Zvkzl disease. 4. Hypertension. 5. Psychiatric problems. PLAN: The patient remains stable. Continue abx, Silvadene cream to left upper thigh, anticipate dc on PO Bactrim. DW staff Problems: Consultation Date/Type/Reason Admit Date/Time Jan 11, 2017 at 22:42 Type of Consultation: ID Exam/Review of Systems Vital Signs Vitals Vital Signs Date Time Temp Pulse Resp B/P Pulse Ox O2 Delivery O2 Flow Rate FiO2 01/15/17 07:33 97.9 64 18 157/88 96 01/12/17 00:26 Room Air Intake and Output 01/14/17 01/14/17 01/15/17 15:00 23:00 07:00 Intake Total 250 ml 1670 ml 500 ml Output Total 1550 ml 700 ml Balance 250 ml 120 ml -200 ml Results Result Diagram: 01/15/17 0540 01/15/17 0540 Results 24 hrs Laboratory Tests Test 01/15/17 05:40 Activated Partial Thromboplast Time 29.7 Anion Gap 17 H Basophils # 0.0 Basophils % 0.5 Blood Urea Nitrogen 19 Calcium Level 8.8 Carbon Dioxide Level 26 Chloride Level 103 Creatinine 0.76 Eosinophils # 0.3 Eosinophils % 7.2 H Glucose Level 90 Hematocrit 30.8 L Hemoglobin 9.8 L INR International Normalized Ratio 0.95 Lymphocytes # 1.0 Lymphocytes % 21.4 Mean Corpuscular Hemoglobin 25.9 L Mean Corpuscular Hemoglobin Concent 31.8 L Mean Corpuscular Volume 81.3 L Mean Platelet Volume 10.2 Monocytes # 0.6 Monocytes % 12.6 H Neutrophils # 2.6 Neutrophils % 57.8 Nucleated Red Blood Cells # 0.0 Nucleated Red Blood Cells % 0.0 Platelet Count 295 Potassium Level 3.9 Prothrombin Time 12.7 Prothrombin Time Ratio 1.0 Red Blood Count 3.79 L Red Cell Distribution Width 15.9 H Sodium Level 142 White Blood Count 4.4 #L Medications Medications Current Medications Ondansetron HCl (Zofran Inj) 4 mg Q6H PRN IV NAUSEA AND/OR VOMITING; Start at 23:00 Acetaminophen (Tylenol Tab) 650 mg Q6H PRN PO PAIN LEVEL 1-3 OR FEVER; Start at 23:00 Acetaminophen/ Hydrocodone Bitart ([place] (5/325)) 1 tab Q6H PRN PO MODERATE PAIN LEVEL 4-6 Last administered on 01/15/17 02:38; Admin Dose 1 TAB; Start at 23:00 Docusate Sodium (Colace) 100 mg Q12H PRN PO CONSTIPATION; Start 01/11/17 at 23: 00 Magnesium Hydroxide (Milk Of Mag) 30 ml DAILY PRN PO CONSTIPATION; Start at 23:00 Sodium Biphosphate/ Sodium Phosphate (Fleet Enema) 133 ml DAILY PRN [place] CONSTIPATION; Start 01/11/17 at 23:00 Heparin Sodium (Porcine) (Heparin (5000 Units/0.5 ml)) 5,000 unit Q12 SC Last administered on 01/15/17 09:26; Admin Dose 5,000 UNIT; Start 01/12/17 at 09:00 Lorazepam (Ativan) 0.5 mg Q6H PRN IV ANXIETY; Start 01/11/17 at 23:00 Vancomycin HCl (Vanco Iv Per Pharmacy) VANCOMYCIN PER PHARMACY NOTE XX ; Start 01/11/17 at 23:00 Hydralazine HCl (Apresoline) 10 mg Q6H PRN IV ELEVATED BLOOD PRESSURE; Start at 23:00 Clonidine (Catapres) 0.1 mg Q6H PRN PO ELEVATED SYSTOLIC BP; Start 01/11/17 at 23:00 Nitroglycerin (Nitroglycerin (Sl Tab) 0.4 Mg) 1 tab Q5M PRN SL ANGINA; Start at 23:00 Metoprolol Succinate (Toprol Xl) 100 mg DAILY PO Last administered on 09:22; Admin Dose 100 MG; Start 01/12/17 at 09:00 Venlafaxine HCl (Effexor Xr) 300 mg DAILY PO Last administered on 01/15/17 09: 22; Admin Dose 300 MG; Start 01/12/17 at 09:00 Levofloxacin (Levaquin) 500 mg DAILY@06 PO Last administered on 01/15/17 05:27 ; Admin Dose 500 MG; Start 01/12/17 at 15:30 Silver Sulfadiazine (Thermazene 1% 50 Gm) 1 applic BID TOP Last administered on 01/15/17 09:23; Admin Dose 1 APPLIC; Start 01/12/17 at 16:00 Pantoprazole (Protonix Tab) 40 mg DAILY@06 PO Last administered on 01/15/17 05 :27; Admin Dose 40 MG; Start 01/13/17 at 06:00 Hydromorphone HCl (Dilaudid) 0.5 mg Q4H PRN IV PAIN Last administered on 13:27; Admin Dose 0.5 MG; Start 01/12/17 at 23:00 Losartan Potassium (Cozaar) 50 mg DAILY PO Last administered on 01/15/17 09:22 ; Admin Dose 50 MG; Start 01/13/17 at 11:00 Tamsulosin HCl 0.4 mg 0.4 mg HS PO Last administered on 01/14/17 20:58; Admin Dose 0.4 MG; Start 01/13/17 at 21:00 Vancomycin HCl/ Sodium Chloride (Vancocin/NS) 250 ml @ 83.333 mls/ hr Q12H IVPB Last administered on 01/15/17 05:35; Admin Dose 83.333 MLS/HR; Start at 06:00 Miscellaneous Information (*Rx Drug Level Order Reminder*) VANCOMYCIN TROUGH AT 1700 ONCE ONCE XX ; Start 01/15/17 at 17:00; Stop 01/15/17 at 17:01 LAN MENDOZA NP Jan 15, 2017 13:43
[2017-01-15 19:00] VITALS: BP 136/71; RESP 18
[2017-01-15] MEDS: TAMSULOSIN (SR) 0.4 MG CAP PO SCH (20:14)
[2017-01-16] MEDS: HYDROmorphONE 1 MG/ML SYG IV PRN ×3 (04:13→13:48)
[2017-01-16] MEDS: LEVOFLOXACIN 500 MG TAB PO SCH (06:35)
[2017-01-16] MEDS: PANTOPRAZOLE (EC) 40 MG TAB PO SCH (06:35)
[2017-01-16] MEDS: VANCOMYCIN 1.5 GM in SOD CHLORIDE 0.9% 250 ML IVPB SCH (06:35)
[2017-01-16 07:23] VITALS: BP 187/88; RESP 22
[2017-01-16] MEDS: VENLAFAXINE (XR) 75 MG CAP PO SCH (08:32)
[2017-01-16] MEDS: LOSARTAN 50 MG TAB PO SCH (08:33)
[2017-01-16] MEDS: METOPROLOL (XL) 100 MG TAB PO SCH (08:33)
[2017-01-16] MEDS: SILVER SULFADIAZINE 1% 50 GM CR TOP SCH (08:34)
[2017-01-16] MEDS: HEPARIN 5,000 UNIT/0.5 ML SYG SC SCH (09:06)
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
--- NOTE | 2017-01-16 13:55 | CONS ---
Date/Time of Note Date/Time of Note DATE: 01/16/17 TIME: 13:54 Assessment/Plan Assessment/Plan Chief Complaint/Hosp Course SUBJECTIVE: The patient is alert, feels better, lying comfortably in bed, no fevers. ANTIMICROBIALS 1. Vancomycin. 2. Levaquin PHYSICAL EXAMINATION GENERAL: A well-developed, fragile, elderly man who looks older than his age, who is in no distress. HEENT: Head atraumatic, normocephalic. Sclerae are anicteric. Buccal mucosa pink. NECK: Supple. CHEST: Rise symmetrical. Breath sounds clear. HEART: S1, S2. ABDOMEN: Soft, bowel tones present. EXTREMITIES: Left lower extremity erythema around the scabs on the upper thigh. ASSESSMENT 1. Left thigh cellulitis. 2. History of benign prostatic hypertrophy. 3. History of Jlzzr-Icbfplurd-Obinu disease. 4. Hypertension. 5. Psychiatric problems. PLAN: The patient remains stable. Continue abx, Silvadene cream to left upper thigh, anticipate dc on PO Bactrim. DW staff Problems: Consultation Date/Type/Reason Admit Date/Time Jan 11, 2017 at 22:42 Type of Consultation: ID Exam/Review of Systems Vital Signs Vitals Vital Signs Date Time Temp Pulse Resp B/P Pulse Ox O2 Delivery O2 Flow Rate FiO2 01/16/17 07:23 98.1 59 22 187/88 95 Intake and Output 01/15/17 01/15/17 01/16/17 15:00 23:00 07:00 Intake Total 250 ml 1080 ml 970 ml Output Total 900 ml 1550 ml Balance 250 ml 180 ml -580 ml Results Result Diagram: 01/15/17 0540 01/15/17 0540 Results 24 hrs Laboratory Tests Test 01/15/17 17:10 Vancomycin Level Trough 15.3 Medications Medications Current Medications Ondansetron HCl (Zofran Inj) 4 mg Q6H PRN IV NAUSEA AND/OR VOMITING; Start at 23:00 Acetaminophen (Tylenol Tab) 650 mg Q6H PRN PO PAIN LEVEL 1-3 OR FEVER; Start at 23:00 Acetaminophen/ Hydrocodone Bitart ([place] (5/325)) 1 tab Q6H PRN PO MODERATE PAIN LEVEL 4-6 Last administered on 01/15/17t 02:38; Admin Dose 1 TAB; Start at 23:00 Docusate Sodium (Colace) 100 mg Q12H PRN PO CONSTIPATION; Start 01/11/17 at 23: 00 Magnesium Hydroxide (Milk Of Mag) 30 ml DAILY PRN PO CONSTIPATION; Start at 23:00 Sodium Biphosphate/ Sodium Phosphate (Fleet Enema) 133 ml DAILY PRN [place] CONSTIPATION; Start 01/11/17 at 23:00 Heparin Sodium (Porcine) (Heparin (5000 Units/0.5 ml)) 5,000 unit Q12 SC Last administered on 01/16/17 09:06; Admin Dose 5,000 UNIT; Start 01/12/17 at 09:00 Lorazepam (Ativan) 0.5 mg Q6H PRN IV ANXIETY Last administered on 01/16/17 00: 30; Admin Dose 0.5 MG; Start 01/11/17 at 23:00 Vancomycin HCl (Vanco Iv Per Pharmacy) VANCOMYCIN PER PHARMACY NOTE XX ; Start 01/11/17 at 23:00 Hydralazine HCl (Apresoline) 10 mg Q6H PRN IV ELEVATED BLOOD PRESSURE; Start at 23:00 Clonidine (Catapres) 0.1 mg Q6H PRN PO ELEVATED SYSTOLIC BP; Start 01/11/17 at 23:00 Nitroglycerin (Nitroglycerin (Sl Tab) 0.4 Mg) 1 tab Q5M PRN SL ANGINA; Start at 23:00 Metoprolol Succinate (Toprol Xl) 100 mg DAILY PO Last administered on 08:33; Admin Dose 100 MG; Start 01/12/17 at 09:00 Venlafaxine HCl (Effexor Xr) 300 mg DAILY PO Last administered on 01/16/17 08: 32; Admin Dose 300 MG; Start 01/12/17 at 09:00 Levofloxacin (Levaquin) 500 mg DAILY@06 PO Last administered on 01/16/17 06:35 ; Admin Dose 500 MG; Start 01/12/17 at 15:30 Silver Sulfadiazine (Thermazene 1% 50 Gm) 1 applic BID TOP Last administered on 01/16/17 08:34; Admin Dose 1 APPLIC; Start 01/12/17 at 16:00 Pantoprazole (Protonix Tab) 40 mg DAILY@06 PO Last administered on 01/16/17 06 :35; Admin Dose 40 MG; Start 01/13/17 at 06:00 Hydromorphone HCl (Dilaudid) 0.5 mg Q4H PRN IV PAIN Last administered on 13:48; Admin Dose 0.5 MG; Start 01/12/17 at 23:00 Losartan Potassium (Cozaar) 50 mg DAILY PO Last administered on 01/16/17 08:33 ; Admin Dose 50 MG; Start 01/13/17 at 11:00 Tamsulosin HCl 0.4 mg 0.4 mg HS PO Last administered on 01/15/17 20:14; Admin Dose 0.4 MG; Start 01/13/17 at 21:00 Vancomycin HCl/ Sodium Chloride (Vancocin/NS) 250 ml @ 83.333 mls/ hr Q12H IVPB ; Start 01/16/17 at 18:00 LAN MENDOZA NP Jan 16, 2017 13:55
--- NOTE | 2017-01-16 14:48 | PDOCDIS ---
Discharge Instructions CONDITION Patient Condition: Good HOME CARE INSTRUCTIONS: Special Diet: low fat/chol ACTIVITY: Activity Restrictions: No Restrictions FOLLOW UP/APPOINTMENTS Appointments Follow up with PCP in one week MYNOR DIAZ MD Jan 16, 2017 14:48
[2017-01-16] MEDS ORDERED: SULF1TAB31 PO (14:50)
[2017-01-16] MEDS ORDERED: LEVO500T10 PO (14:50)
--- NOTE | 2017-01-16 15:30 | PN ---
Date/Time of Note Date/Time of Note DATE: 01/15/17 TIME: 15:28 Late entry Assessment/Plan VTE Prophylaxis VTE Prophylaxis Intervention: other Lines/Catheters IV Catheter Type (from Nrs): Peripheral IV Urinary Cath still in place: No Assessment/Plan Chief Complaint/Hosp Course Assessment/Plan 1. Left thigh cellulitis. 2. Intractable left thigh pain 2. History of benign prostatic hypertrophy. 3. History of Mumhg-Poutkopmu-Spney disease. 4. Hypertension. 5. Psychiatric problems. Plan: I antibiotics as per ID SW consutl ID following Heparin for DVT prophylaxis Consult pain management doctor Plan to discharge home tomorrow with oral versus IV antibiotics as per infectious disease doctor Problems: Subjective 24 Hr Interval Summary Free Text/Dictation Patient complains of having left lower extremity pain He is requesting to be seen by pain management doctor Denies any chest pain or shortness of breath Exam/Review of Systems Vital Signs Vitals Vital Signs Date Time Temp Pulse Resp B/P Pulse Ox O2 Delivery O2 Flow Rate FiO2 01/16/17 07:23 98.1 59 22 187/88 95 Intake and Output 01/15/17 01/15/17 01/16/17 15:00 23:00 07:00 Intake Total 250 ml 1080 ml 970 ml Output Total 900 ml 1550 ml Balance 250 ml 180 ml -580 ml Exam General: The patient is well-developed, Not in acute distress. HEENT: Atraumatic, normocephalic. The pupils are equal and round . Neck: Supple with full range of motion. Chest: Normal expansion of the thorax during inspiration Lungs: Clear to auscultation bilaterally Heart: Normal S1-S2, Regular rhythm and rate. Abdomen: Soft , nontender, nondistended , bowel sounds are present. Extremities: Erythema in the medial aspect of the left lower extremity, no edema no cyanosis Neurologic: Normal mental status,The patient is awake, alert and oriented . Results Result Diagram: 01/15/17 0540 01/15/17 0540 Results 24 hrs Laboratory Tests Test 01/15/17 17:10 Vancomycin Level Trough 15.3 Medications Medications Current Medications Ondansetron HCl (Zofran Inj) 4 mg Q6H PRN IV NAUSEA AND/OR VOMITING; Start at 23:00 Acetaminophen (Tylenol Tab) 650 mg Q6H PRN PO PAIN LEVEL 1-3 OR FEVER; Start at 23:00 Acetaminophen/ Hydrocodone Bitart ([place] (5/325)) 1 tab Q6H PRN PO MODERATE PAIN LEVEL 4-6 Last administered on 01/15/17 02:38; Admin Dose 1 TAB; Start at 23:00 Docusate Sodium (Colace) 100 mg Q12H PRN PO CONSTIPATION; Start 01/11/17 at 23: 00 Magnesium Hydroxide (Milk Of Mag) 30 ml DAILY PRN PO CONSTIPATION; Start at 23:00 Sodium Biphosphate/ Sodium Phosphate (Fleet Enema) 133 ml DAILY PRN [place] CONSTIPATION; Start 01/11/17 at 23:00 Heparin Sodium (Porcine) (Heparin (5000 Units/0.5 ml)) 5,000 unit Q12 SC Last administered on 01/16/17 09:06; Admin Dose 5,000 UNIT; Start 01/12/17 at 09:00 Lorazepam (Ativan) 0.5 mg Q6H PRN IV ANXIETY Last administered on 01/16/17 00: 30; Admin Dose 0.5 MG; Start 01/11/17 at 23:00 Vancomycin HCl (Vanco Iv Per Pharmacy) VANCOMYCIN PER PHARMACY NOTE XX ; Start 01/11/17 at 23:00 Hydralazine HCl (Apresoline) 10 mg Q6H PRN IV ELEVATED BLOOD PRESSURE; Start at 23:00 Clonidine (Catapres) 0.1 mg Q6H PRN PO ELEVATED SYSTOLIC BP; Start 01/11/17 at 23:00 Nitroglycerin (Nitroglycerin (Sl Tab) 0.4 Mg) 1 tab Q5M PRN SL ANGINA; Start at 23:00 Metoprolol Succinate (Toprol Xl) 100 mg DAILY PO Last administered on 08:33; Admin Dose 100 MG; Start 01/12/17 at 09:00 Venlafaxine HCl (Effexor Xr) 300 mg DAILY PO Last administered on 01/16/17 08: 32; Admin Dose 300 MG; Start 01/12/17 at 09:00 Levofloxacin (Levaquin) 500 mg DAILY@06 PO Last administered on 01/16/17 06:35 ; Admin Dose 500 MG; Start 3/17/17 at 15:30 Silver Sulfadiazine (Thermazene 1% 50 Gm) 1 applic BID TOP Last administered on 01/16/17 08:34; Admin Dose 1 APPLIC; Start 01/12/17 at 16:00 Pantoprazole (Protonix Tab) 40 mg DAILY@06 PO Last administered on 01/16/17 06 :35; Admin Dose 40 MG; Start 01/13/17 at 06:00 Hydromorphone HCl (Dilaudid) 0.5 mg Q4H PRN IV PAIN Last administered on 13:48; Admin Dose 0.5 MG; Start 01/12/17 at 23:00 Losartan Potassium (Cozaar) 50 mg DAILY PO Last administered on 01/16/17 08:33 ; Admin Dose 50 MG; Start 01/13/17 at 11:00 Tamsulosin HCl 0.4 mg 0.4 mg HS PO Last administered on 01/15/17 20:14; Admin Dose 0.4 MG; Start 01/13/17 at 21:00 Vancomycin HCl/ Sodium Chloride (Vancocin/NS) 250 ml @ 83.333 mls/ hr Q12H IVPB ; Start 01/16/17 at 18:00 MYNOR DIAZ MD Jan 16, 2017 15:30
[2017-01-16] MEDS ORDERED: HYDROmorphONE 1 MG/ML SYG IV PRN (16:00)
[2017-01-16] MEDS ORDERED: VANCOMYCIN 1.25 GM in SOD CHLORIDE 0.9% 250 ML IVPB SCH (18:00)
--- NOTE | 2017-01-17 05:53 | DS ---
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 The patient was also seen by Dr. Sole Cole. DISCHARGE DIAGNOSES: 1. Left thigh cellulitis. 2. History of benign prostatic hypertrophy. 3. History of Lwvxq-Slrvyvuak-Lgekp disease. 4. Hypertension. 5. Psychiatric problem. 6. Pain med seeking behavior. MEDICATIONS: 1. Levaquin 500 mg. 2. Lotrimin. 3. Lidocaine. 4. Losartan 5. Metoprolol. 6. Nystatin. 7. Bactrim. 8. Effexor. ALLERGIES: NO KNOWN DRUG ALLERGIES. LABORATORY: WBC 4.4, hemoglobin 9.8, hematocrit 30.8, platelets 295. Sodium 142, potassium 3.9, ch loride 103, bicarbonate 26, BUN 19, creatinine 0.76, glucose 90, calcium 8.8. Hemoglobin A1c 5.3. T riglycerides 78, total cholesterol 181, LDL 96, HDL 49. Free T4 1.21. TSH 5.36. HOSPITAL COURSE: This is a 61-year-old gentleman with past medical history of BPH, stress-induced l upus, Riuzh-Cagweeegj-Eyrxi syndrome, microcytic anemia, spinal stenosis. Left thigh wound and cell ulitis, status post extensive abscess debridement in 2013, essential hypertension, chronic pain synd jesika whom state that presented for left thigh burn and pain, which has been recorded 6 or 7 days ricco or to his admission. 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 He applied Neosporin and hydrogen peroxide on the area without any improvement. The WBC was found to be normal at 7.6. The patient was found to be afebrile, vitals were stable. The patient was se en and evaluated by infectious disease and was placed on vancomycin and Zosyn during the course of h ospitalization and was placed on silver sulfadiazine twice daily. The patient was continued on medi nava management under the care of Dr. Sole Cole. Although due to his request of pain medication and t he high dose such as Dilaudid 8 mg, the patient's care was transferred to another hospitalist care a [facility] pain management doctor was consulted and their recommendation was to place the patient on Toradol 10 mg p.o. q.6 hours upon discharge. At this time, the patient is medically stable to be discharge d home. The patient has been cleared as per infectious disease doctor and medicine and medical danny dpoint to be discharged home on oral antibiotics. The patient is to follow up with his primary care doctor as outpatient. Dictated By: MYNOR DIAZ MD PN/NTS Conf#: [id number] DID#: [id number] CC: JORDEN PADRON; SWATHI COLE MD; RYAN FERRARO MD;*EndCC*
== END 2017-01-16 18:10 | disposition home or self-care (01) | DRG 603 ==
LOC: FTE 15:30 → MS2 22:42
PROVIDERS: ADMIT Hospitalist; ATTEND Hospitalist
DX: L03.116 Cellulitis of left lower limb (principal); I10 Essential (primary) hypertension; T24.0 Burn of unspecified degree of lower limb, except ankle and foot; L93.0 Discoid lupus erythematosus; D50.9 Iron deficiency anemia, unspecified; F41.9 Anxiety disorder, unspecified; N40.0 Benign prostatic hyperplasia without lower urinary tract symptoms; I45.6 Pre-excitation syndrome; F99 Mental disorder, not otherwise specified; X10.2XXS Contact with fats and cooking oils, sequela; T46.2X5D Adverse effect of other antidysrhythmic drugs, subsequent encounter; Z76.5 Malingerer [conscious simulation]; G89.29 Other chronic pain; X12.XXXS Contact with other hot fluids, sequela
CPT/HCPCS: 36415; 80048; 80053; 80061; 80202; 81003; 83036; 83735; 84100; 84439; 84443; 85025; 85610; 85730; 87040; 87086; 90686; 96374; 96375; C9113; J1170; J1644; J2060; J2270; J2405; J2543; J3370; J7030; J7050